=== PATIENT | female | born 1975 | race Caucasian/White ===

== ENCOUNTER 2020-02-17 15:45 | Emergency (ER) | payer OTHER ==
[2020-02-17 16:21] VITALS: BP 108/73; PULSE 96; TEMP 101.1; BMI 26.4
[2020-02-17] MEDS ORDERED: ACETAMINOPHEN 500 MG TABLET (FP) PO ONE (16:54)
[2020-02-17] MEDS ORDERED: ACETAMINOPHEN 500 MG TABLET (FP) ONE (16:57)
== END 2020-02-17 18:31 | disposition home or self-care (01) ==
LOC: JER 15:45
DX: U07.1 COVID-19 (principal)
CPT/HCPCS: 71046-TC-FY; 99283-25

== ENCOUNTER 2022-04-11 11:04 | Emergency (ER) | payer OTHER ==
[2022-04-11 11:25] VITALS: BMI 30.1
[2022-04-11] MEDS ORDERED: morphine CARPU-JECT 2 MG/1 ML DISP.SYRIN IVPUSH ONE (12:51)
[2022-04-11] MEDS ORDERED: SODIUM CHLORIDE 0.9% 500 ML INFUS.BAG IV ONE (12:51)
[2022-04-11 13:45] VITALS: BP 118/56; PULSE 94; RESP 16; TEMP 98.8
[2022-04-11 13:50] LABS: BASO % 0.4 % (0-2.0); EOS % 0.6 % (0-4.5); HEMATOCRIT 41.8 % (32.4-45.2); HEMOGLOBIN 14.2 GM/dL (10.7-15.3); LYMPH % 24.2 % (8-40); MEAN CELL VOLUME 91.2 fl (80-96); MEAN PLT VOLUME 8.5 fl (7.5-11.1); MONO % 12.7 % (3.8-10.2); NEUT % 62.1 % (42.8-82.8); PLATELET COUNT 289 10^3/uL (134-434); RBC 4.58 M/mm3 (3.60-5.2); RDW 13.4 % (11.6-15.6); WHITE BLOOD COUNT 3.7 K/mm3 (4.0-10.0)
[2022-04-11 13:55] LABS: EPI CELLS 15 /uL (0-25.1); HYALINE CASTS 0 /uL (0-3.1); PH,URINE 6.5 (5.0-8.0); URINE APPEARANCE CLEAR; URINE BACTERIA 16 /uL (0-1359); URINE BILIRUBIN NEGATIVE (NEGATIVE); URINE COLOR YELLOW; URINE GLUCOSE (UA) NEGATIVE (NEGATIVE); URINE KETONE NEGATIVE (NEGATIVE); URINE LEUK ESTERASE NEGATIVE (NEGATIVE); URINE NITRITE NEGATIVE (NEGATIVE); URINE PROTEIN NEGATIVE (NEGATIVE); URINE RBC 13 /uL (0-23.9); URINE UROBILINOGEN 0.2 mg/dL (0.2-1.0); URINE WBC 1 /uL (0-25.8)
[2022-04-11 13:56] LABS: INR 1.18 (0.83-1.09); PROTHROMBIN TIME (PATIENT) 13.7 SEC (9.7-13.0)
[2022-04-11 13:59] LABS: ACTIVATED PTT 31.8 SECONDS (25.2-36.5)
[2022-04-11 14:19] LABS: CALCIUM 9.8 mg/dL (8.5-10.1)
[2022-04-11 14:20] LABS: ALBUMIN 4.3 g/dl (3.4-5.0); BLOOD UREA NITROGEN 15.8 mg/dL (7-18)
[2022-04-11 14:23] LABS: CREATININE 0.7 mg/dL (0.55-1.3)
[2022-04-11 14:25] LABS: BILIRUBIN,TOTAL 0.2 mg/dL (0.2-1); TOT PROT 8.2 g/dl (6.4-8.2)
[2022-04-11] MEDS ORDERED: morphine CARPU-JECT 4 MG/1 ML DISP.SYRIN IVPUSH ONE (16:33)
[2022-04-11] MEDS ORDERED: morphine SULFATE 4 MG/ML VIAL ONE (16:37)
== END 2022-04-11 19:33 | disposition home or self-care (01) ==
LOC: JER 11:04
PROC: 3E033NZ Introduction of Analgesics, Hypnotics, Sedatives into Peripheral Vein, Percutaneous Approach (ICD-10-PCS; principal; 2022-04-11)
PROC: 3E033NZ Introduction of Analgesics, Hypnotics, Sedatives into Peripheral Vein, Percutaneous Approach (ICD-10-PCS; 2022-04-11)
DX: M54.2 Cervicalgia (principal); R10.32 Left lower quadrant pain
CPT/HCPCS: 36415; 72131-TC; 74177-TC; 80053; 81003; 83605; 85025; 85610; 85730; 87086; 99285-25; Q9967